=== PATIENT | female | born 1995 | race Two or more races ===

== ENCOUNTER 2016-04-29 15:58 | Inpatient (IN) | payer MEDICAID, OTHER ==
[2016-04-29] MEDS ORDERED: LIDOCAINE 1% (PRES FREE) 30 ML VIAL ONE (16:50)
[2016-04-29] MEDS ORDERED: IV START KIT ONE (16:50)
[2016-04-29] MEDS ORDERED: SODIUM CHLORIDE 0.9% FLUSH 30 ML ONE (16:50)
[2016-04-29] MEDS ORDERED: LIDOCAINE Viscous 2% 15 ML UDCUP ONE (16:50)
[2016-04-29] MEDS ORDERED: PUMP TUBING ONE (16:50)
[2016-04-29] MEDS ORDERED: OXYTOCIN 10 UNITS/ML VIAL ONE (16:50)
[2016-04-29] MEDS ORDERED: MINERAL OIL 25 ML BOT ONE (16:50)
[2016-04-29] MEDS ORDERED: OXYTOCIN IN LR 500 ML IV ONE ×2 (16:50→17:54)
[2016-04-29 17:30] VITALS: BMI 46.9
[2016-04-29] MEDS ORDERED: OXYTOCIN IN LR 500 ML IV PRN (17:55)
[2016-04-29] MEDS ORDERED: LACTATED RINGERS 1,000 ML IV SCH (18:00)
[2016-04-29] MEDS ORDERED: LANOLIN 50 APPLIC/7G TUBE TP PRN (21:24)
[2016-04-29] MEDS ORDERED: IBUPROFEN 800 MG TABLET PO PRN (21:24)
[2016-04-29] MEDS ORDERED: BENZOCAINE/MENTHOL 60 APPLIC/BOT TP PRN (21:24)
[2016-04-29] MEDS ORDERED: HYDROCODONE/ACETAMINOPHEN 5/325MG TABLET PO PRN (21:24)
[2016-04-29] MEDS ORDERED: DIPHTH,PERTUSS(ACELL),TET VAC 0.5 ML VIAL IM V ONE (21:24)
[2016-04-29] MEDS ORDERED: MAGNESIUM HYDROXIDE 30 ML UDCUP PO PRN (21:24)
[2016-04-29] MEDS ORDERED: MEASLES,MUMPS&RUBELLA VACCINE 0.5 ML VIAL SUB-Q V ONE (21:24)
--- NOTE | 2016-04-29 21:25 | PCMAN ---
OB Admission Note - History : 2 Term: 1 : 0 Abortions (S&E): 0 Livin Gestational Age (weeks): 39 Days (#/7): 6 Membrane Status: Intact Labor Onset (Date): 04/29/16 Labor Onset (Time): 19:00 Contractions: Yes Contraction Frequency:: 4 MINUTES Summary of Course:: Pt presented to [facility] today, US shows gallstones, ansd surgery suggested del baby and fatoumata out gallbladder. Pt came to [facility] to be induced - Labs Blood Type: O (+) positive
--- NOTE | 2016-04-29 21:26 | PCMDEL ---
Delivery Note - Delivery Delivery (Date): 04/29/16 Delivery (Time): 20:49 Infant Gender: Female Position: OA Umbilical Cord: 3 Vessel Delayed Cord Clamping:: > 3 min Placenta:: spontaneous and complete EBL:: 300 Perineum:: intact
[2016-04-30 06:48] LABS: ABSOLUTE NEUTROPHIL COUNT 10.6 K/mm3 (1.8-7.7); BASO % 0.2 % (0.2-1.0); EOS % 0.2 % (0.9-2.9); HEMATOCRIT 34.9 % (37.0-47.0); HEMOGLOBIN 11.5 gm/l (12.0-16.0); IMM NEUT # 0.1 K/mm3 (0-0.2); IMM NEUT% 0.6 % (0-1); LYMPH # 1.2 (1.0-4.8); LYMPH % 9.8 % (15-45); MEAN CORPUSCULAR HEMOGLOBIN 28.7 pg (27.0-31.0); MEAN PLATELET VOLUME 12.6 fl (7.4-10.4); MONO # 0.7 (0.0-0.8); MONO % 5.6 % (4-12); NEUT % 83.6 % (43-75); PLATELET COUNT 150 K/mm3 (130-400); RED CELL DISTRIBUTION WIDTH 14.5 % (11.5-14.5)
[2016-04-30 07:07] LABS: ALB/GLOB RATIO 0.9 (>1.0); ALBUMIN 2.7 gm/dL (3.5-5.7); CALCIUM 8.6 mg/dL (8.6-10.3)
[2016-04-30] MEDS: DOCUSATE SODIUM 100 MG CAPSULE PO SCH (08:00)
--- NOTE | 2016-04-30 08:41 | PDOC44 ---
- Subjective Day: 1 Reports Pain Tolerable, Reports , Reports Lochia Light, Reports Tolerating Regular Diet - Objective Temp Pulse Resp BP Pulse Ox 97.9 F 83 18 107/55 04/30/16 07:51 04/30/16 07:51 04/30/16 07:51 04/30/16 07:51 Lab Results 04/30/16 06:20 WBC 12.7 H RBC 4.01 L Hgb 11.5 L Hct 34.9 L Plt Count 150 Creatinine 0.5 L AST 12 L ALT 12 04/30/16 06:20 Neut % (Auto) 83.6 H Lymph % (Auto) 9.8 L Absolute Neuts (auto) 10.6 H Eosinophils % 0.2 L BUN 5 L Estimated GFR 156 H Alkaline Phosphatase 118 H Total Protein 5.7 L Albumin 2.7 L Albumin/Globulin Ratio 0.9 L Current Medications Generic Name Dose Route Start Last Admin Trade Name Freq PRN Reason Stop Dose Admin Acetaminophen/Hydrocodone Bitart 1 - 2 tab 04/29/16 21:24 [place] 5/325 PO Q4H PRN Pain (Moderate) Benzocaine/Menthol 1 applic 04/29/16 21:24 04/29/16 21:59 Dermoplast TP 1 bot PRN PRN Administration Patient Comfort Docusate Sodium 100 mg 04/30/16 09:00 04/30/16 08:00 Colace PO 100 mg DAILY ANNABELLA Administration Emollient Ointment 1 applic 04/29/16 21:24 [id number] TP PRN PRN sore nipples Ibuprofen 800 mg 04/29/16 21:24 04/29/16 21:59 Motrin PO 800 mg Q6H PRN Administration Pain (Mild) Magnesium Hydroxide 30 ml 04/29/16 21:24 Milk Of Magnesia PO BEDTIME PRN Constipation Sodium Chloride 10 ml 04/29/16 21:24 Normal Saline 10ml Flush IV PRN PRN IV Flush - Physical Exam General: Afebrile Psych/Mental Status: Mood/Affect Appropriate Breast: Soft Fundus: Firm Abdomen: Normal Bowel Sounds Genitourinary: Normal Female Genitalia Disposition: Stable, Anticipate DC Home Tomorrow (surgeon to see today for cholecystitis)
[2016-05-01 08:09] VITALS: BP 101/49
[2016-05-01] MEDS: DOCUSATE SODIUM 100 MG CAPSULE PO SCH (08:17)
--- NOTE | 2016-05-01 11:20 | PDOC39B ---
Hospital Course: ADMIT DATE: 04/29/16 DISCHARGE DATE: [05/01/2016] ADMISSION DIAGNOSES: [labor] PROCEDURES: [vaginal delivery] HISTORY OF PRESENT ILLNESS: 20 year old G2 T1 L1 at 39 weeks 6 days presenting with [labor] HOSPITAL COURSE: The patient [delivered a viable without complication. She requested d/c home PPD#2] By day of discharge the patient is ambulating, eating, voiding, and passing flatus without difficulty. Pain is controlled and lochia is appropriate. She is [] - Physical Exam Vital Signs: Temp Pulse Resp BP Pulse Ox 98.0 F 73 16 101/49 05/01/16 07:45 05/01/16 07:45 05/01/16 07:45 05/01/16 07:45 General: Afebrile Psych/Mental Status: Mood/Affect Appropriate, Judgment/Insight Intact, Bonding Well Neurological: Grossly Intact, Alert, Oriented x 4 HEENT: Atraumatic, PERRLA, EOMI, Mucous membr. moist/pink Lungs: Clear to Auscultation Bilaterally, Normal Air Movement Cardiovascular: Regular Rate and Rhythm, Normal S1, Normal S2 Breast: Soft, Skin intact Fundus: Firm, At Umbilicus Abdomen: Normal Bowel Sounds Lochia: Light Extremities: Full ROM Skin: Normal Color, Warm, Dry, Intact - Discharge Plan Disposition: Home Instruction Forms: Vaginal Discharge Instructions Additional Instructions: Follow up with Dr. Larkin in 6 weeks.
--- NOTE | 2016-05-01 15:30 | CONS ---
TERELL ALVARENGA : 1995 DATE OF CONSULTATION: April 30, 2016 REQUESTING PHYSICIAN: Reji Larkin M.D. HISTORY OF PRESENT ILLNESS: I had the pleasure of seeing Ms. Alvarenga in [facility] today. She is a 20-year-old female who was recently seen at [facility]. She underwent an ultrasound at [facility] that demonstrated that she had gallstones with a possible gallstone lodged in the neck of the gallbladder. The gallbladder ultrasound was completed with Ms. Alvarenga's right upper quadrant pain in her setting of 39 week . At [facility] they recommended that she proceed with delivery of the baby and then proceed with a laparoscopic cholecystectomy shortly thereafter. Based on this, Ms. Alvarenga proceed to the [facility] which is closer to her home. At [facility], Dr. Larkin induced delivery and Ms. Alvarenga had a very healthy, happy new young addition to her family with a baby girl. Immediately upon completion of delivery, Ms. Alvarenga had complete resolution of her right upper quadrant abdominal pain. Ms. Alvarenga states that she has had previous attacks of what appear to be classic biliary colic over the last one to two years. She states that after eating fatty foods, she gets right upper quadrant abdominal pain and a stabbing type sensation that lasts for a number of hours and then dissipates. It does not return for a number of months, but ultimately she has had multiple attacks. Over her last few weeks of , she has had worsening right upper quadrant abdominal pain which culminated just prior to her presentation at [facility] in the last 48 hours. Since having the delivery, Ms. Alvarenga has had complete resolution of her right upper quadrant abdominal pain. PHYSICAL EXAM: On physical exam, Ms. Alvarenga appears her stated age. Her abdomen is soft. She has no real right upper quadrant abdominal tenderness. She denies pain with deep palpations and has a negative Campos's at this point. LABS: Her laboratory results reveal a normal bilirubin, slight elevation in her AST, alkaline phosphatase and WBC which may be consistent with late gestational . IMAGING: Ultrasound from [facility] reveals a number of stones in the gallbladder. ASSESSMENT: I had a long discussion today with Ms. Alvarenga. I reviewed the natural history of biliary colic and acute cholecystitis. I also discussed the particular issue with . I did tell Ms. Alvarenga that with her past history of biliary colic prior to this most recent and now having episodes of worsening biliary colic in the late portion of her that she will at some point most likely require her gallbladder to be removed. I did offer a laparoscopic cholecystectomy on this admission but obviously, Ms. Alvarenga has a new addition to the family and has multiple competing commitments at this point. With complete resolution of her abdominal pain, I told her that it is reasonable for her to not proceed with laparoscopic cholecystectomy at this point, but that she should return to see a general surgeon in a number of weeks to discuss elective laparoscopic cholecystectomy. I did review the symptoms of acute cholecystis and the need to present to the emergency department if in fact she has recurrence of her symptoms in the near future. I did again, offer a laparoscopic cholecystectomy, but I understand with competing issues at this point, I think that it is reasonable that she plan for elective laparoscopic cholecystectomy as an outpatient procedure. I did discuss briefly the surgery and the risks, benefits, and alternatives. Ms. Alvarenga will call the general surgery clinic in [place] and make a followup appointment in the near future.
== END 2016-05-01 12:39 | disposition home or self-care (01) | DRG 775 ==
LOC: FBC 15:58 → EDSTATUS 04-30 15:57
PROVIDERS: ADMIT Obstetrics & Gynecology; ATTEND Obstetrics & Gynecology
PROC: 10E0XZZ Delivery of Products of Conception, External Approach (ICD-10-PCS; principal; 2016-04-29)
PROC: 3E033VJ Introduction of Other Hormone into Peripheral Vein, Percutaneous Approach (ICD-10-PCS; 2016-04-29)
DX: O99.62 Diseases of the digestive system complicating childbirth (principal); K80.00 Calculus of gallbladder with acute cholecystitis without obstruction; Z3A.39 39 weeks gestation of pregnancy; Z37.0 Single live birth

== ENCOUNTER 2016-05-02 02:52 | Day surgery (SDC) | payer OTHER ==
[2016-05-02] MEDS ORDERED: MORPHINE SULFATE 4 MG/ML SYRINGE ONE (03:27)
[2016-05-02] MEDS ORDERED: ONDANSETRON 4 MG/2ML 2 ML VIAL ONE ×2 (03:27→14:35)
[2016-05-02 03:32] LABS: ABSOLUTE NEUTROPHIL COUNT 7.5 K/mm3 (1.8-7.7); BASO % 0.3 % (0.2-1.0); EOS # 0.3 (0.0-0.5); EOS % 2.7 % (0.9-2.9); HEMATOCRIT 37.4 % (37.0-47.0); HEMOGLOBIN 11.9 gm/l (12.0-16.0); IMM NEUT # 0.1 K/mm3 (0-0.2); IMM NEUT% 0.5 % (0-1); LYMPH % 10.7 % (15-45); MEAN CELL VOLUME 89.7 fl (81.0-99.0); MEAN CORPUSCULAR HEMOGLOBIN 28.5 pg (27.0-31.0); MEAN CORPUSCULAR HGB CONC 31.8 g/dl (33.0-37.0); MEAN PLATELET VOLUME 12.1 fl (7.4-10.4); MONO # 0.5 (0.0-0.8); MONO % 5.3 % (4-12); NEUT % 80.5 % (43-75); PLATELET COUNT 147 K/mm3 (130-400); RED CELL DISTRIBUTION WIDTH 14.5 % (11.5-14.5)
[2016-05-02 03:49] LABS: ALB/GLOB RATIO 0.9 (>1.0); ALBUMIN 2.8 gm/dL (3.5-5.7); CALCIUM 8.6 mg/dL (8.6-10.3); MAGNESIUM 1.7 mg/dL (1.9-2.7)
[2016-05-02] MEDS ORDERED: SODIUM CHLORIDE 0.9% 1,000 ML ONE ×2 (04:02→05:40)
[2016-05-02 04:49] LABS: SPECIFIC GRAVITY 1.015 (1.001-1.030); URINE BILIRUBIN NEGATIVE (NEGATIVE); URINE BLOOD 4+ (NEGATIVE); URINE GLUCOSE (UA) NEGATIVE (NEGATIVE); URINE LEUKOCYTE ESTERASE TRACE (NEGATIVE); URINE NITRITE NEGATIVE (NEGATIVE); URINE PROTEIN 1+ (NEGATIVE)
[2016-05-02 04:55] LABS: URINE APPEARANCE HAZY; URINE COLOR AMBER; URINE UROBILINOGEN 4 mg/dL (0-1 mg/dl)
[2016-05-02 04:58] LABS: URINE BACTERIA FEW; URINE MUCUS 1+
[2016-05-02] MEDS ORDERED: PUMP TUBING ONE (05:40)
[2016-05-02 05:55] VITALS: BMI 44.1
[2016-05-02] MEDS ORDERED: ACETAMINOPHEN 325 MG TABLET PO PRN ×2 (06:10→16:45)
[2016-05-02] MEDS ORDERED: ONDANSETRON 4 MG/2ML 2 ML VIAL IV PRN ×3 (06:10→16:45)
[2016-05-02] MEDS ORDERED: BLISTEX LIPSTICK 1 EACH TP PRN (06:10)
[2016-05-02] MEDS ORDERED: SODIUM CHLORIDE 0.9% 1,000 ML IV ONE (06:10)
[2016-05-02] MEDS ORDERED: KETOROLAC TROMETHAMINE 30 MG/ML 1 ML VIAL IV PRN ×2 (06:10→16:45)
[2016-05-02] MEDS ORDERED: OXYCODONE HCL 5 MG TABLET PO PRN (06:10)
[2016-05-02] MEDS ORDERED: MENTHOL/CETYLPYRD 1 EACH LOZENGE PO PRN (06:10)
[2016-05-02] MEDS ORDERED: HYDROMORPHONE HCL 1 MG/ML SYRINGE IV PRN ×3 (06:10→16:45)
[2016-05-02] MEDS ORDERED: HYDROMORPHONE HCL 0.5 MG/0.5 ML SYRINGE IV PRN ×2 (06:35→16:53)
[2016-05-02] MEDS ORDERED: METRONIDAZOLE 500 MG/NS 100 ML 500 MG in Premix (D5W) 100 ml 1 EACH IV SCH (06:45)
[2016-05-02] MEDS ORDERED: CEFTRIAXONE 1 GRAM DUPLEX 1 G in Premix (D5W) 50 ml 1 EACH IV SCH ×2 (07:00→08:00)
--- NOTE | 2016-05-02 07:52 | US ---
ABDOMINAL-LIMITED COMPARISON: None HISTORY: Right upper quadrant pain. Known cholelithiasis. FINDINGS: Gall bladder: Length 12.3 cm by with 3.5 cm. There are 3 gallstones, one mobile, 2 nonmobile, in the neck of the gallbladder, up to 2.5 cm, with echogenic sludge. Negative Campos sign. Wall thickness 7.5 mm.. Pericholecystic fluid. Common hepatic duct: 6.1 mm. Common bile duct: 5.2 mm. IMPRESSION: 1. Acute cholecystitis. There are 2 stones lodged in the neck of the gallbladder. Upper limit normal diameter of the common hepatic duct. Preliminary report by [facility] radiologists Mango Carreno M.D. 05/02/2016 at 04:59
[2016-05-02] MEDS ORDERED: NS IV ONE (08:42)
[2016-05-02] MEDS ORDERED: METRONIDAZOLE IV ONE (08:42)
[2016-05-02] MEDS ORDERED: PRENATAL VIT/FE FUMARATE/FA 1 TABLET PO SCH (09:00)
[2016-05-02] MEDS ORDERED: FAMOTIDINE 10 MG/ML 2ML VIAL IV SCH (09:00)
[2016-05-02] MEDS: METRONIDAZOLE 500 MG/NS 100 ML 500 MG in Premix (D5W) 100 ml 1 EACH IV SCH ×3 (09:21→20:32)
[2016-05-02] MEDS: D5 1/2NS with 20 mEq KCL 1,000 ML IV SCH ×2 (09:22→20:15)
[2016-05-02] MEDS ORDERED: LACTATED RINGERS 1,000 ML ONE (11:30)
[2016-05-02] MEDS ORDERED: LIDOCAINE 1%/EPI 1:100,000 (MULTI DOSE) 30 ML VIAL ONE (11:41)
[2016-05-02] MEDS ORDERED: ROCURONIUM BROMIDE 10 MG/ML DOSE IV ONE (12:45)
[2016-05-02] MEDS ORDERED: FENTANYL 250 MCG/5 ML AMP ONE (12:45)
[2016-05-02] MEDS ORDERED: PROPOFOL 20 ML IV ONE ×2 (12:45→15:12)
[2016-05-02] MEDS ORDERED: MIDAZOLAM HCL 5 MG/5 ML VIAL ONE (12:45)
[2016-05-02] MEDS ORDERED: Heparin Sodium 5000 unit/0.5ml syringe SUB-Q PRN (12:54)
[2016-05-02] MEDS ORDERED: DEXAMETHASONE SOD PHOS 4 MG/1 ML VIAL ONE (14:35)
[2016-05-02] MEDS ORDERED: EPHEDRINE SULFATE UD SYR 25 MG 25 MG/5 ML SYRINGE IV ONE (14:35)
[2016-05-02] MEDS ORDERED: PHENYLEPHRINE 10 MG/1 ML (1%) VIAL ONE (14:51)
[2016-05-02] MEDS ORDERED: FENTANYL 100 MCG/2 ML VIAL IV PRN (14:56)
[2016-05-02] MEDS ORDERED: PROMETHAZINE HCL 25 MG/ML VIAL IM PRN (14:56)
[2016-05-02] MEDS ORDERED: ATROPINE SULFATE 0.4 MG/1 ML VIAL IV PRN (14:56)
[2016-05-02] MEDS ORDERED: NALOXONE HCL 0.4 MG/ML VIAL IV PRN (14:56)
[2016-05-02] MEDS ORDERED: KETOROLAC TROMETHAMINE 30 MG/ML 1 ML VIAL ONE (14:57)
[2016-05-02] MEDS ORDERED: GLYCOPYRROLATE 0.2 MG/ML 1ML VIAL ONE (14:57)
[2016-05-02] MEDS ORDERED: NEOSTIGMINE METHYLSULFATE 1 MG/ML DOSE ONE (14:57)
[2016-05-02] MEDS ORDERED: LACTATED RINGERS 1,000 ML IV SCH (15:00)
[2016-05-02] MEDS ORDERED: FENTANYL 100 MCG/2 ML VIAL ONE ×2 (15:12→15:47)
--- NOTE | 2016-05-02 16:11 | PCMON ---
Date of Procedure: 05/02/16 Start Time: 3:00pm PREOPERATIVE DIAGNOSIS Acute cholecystitis POSTOPERATIVE DIAGNOSIS Acute cholecystitits PROCEDURE PERFORMED Laparoscopic cholecystectomy. COMPLICATIONS None. OPERATIVE FINDINGS Acute cholecystitis with severe edematous changes of the gallbladder ESTIMATED BLOOD LOSS 30 mL. BRIEF INDICATIONS TERELL ALVARENGA is a 20 year old F patient with symptoms consistent with gallbladder disease and was admitted for consideration of laparoscopic cholecystectomy. The preoperative Bilirubin was normal, and RUQ-focused ultrasound demonstrated acute cholecystitis with gallstones. Risks and benefits of surgery were explained to the patient, including the 1: 200 risk of common bile duct injury and the possible need for conversion to open technique (5%). The patient declined the possible alternatives and agreed to proceed with surgery, providing informed consent. DESCRIPTION OF PROCEDURE The patient was brought to the operating room and placed supine on the operating room table. A surgical briefing was held to verify the correct patient and correct procedure. A general anesthetic was induced uneventfully, followed by the administration of a subcutaneous heparin injection and perioperative antibiotics. Pneumatic compression stockings were placed on the legs and powered on. The abdomen was prepped and draped in a sterile fashion. A 5-mm direct optical view trocar was used to enter the right upper quadrant under direct vision of the abdominal wall layers. Once inside the abdominal cavity, a pneumoperitoneum was created. No injury to underlying structures occurred with placement of this trocar. Once inside the abdominal cavity, an additional 11-mm port was placed in the upper midline just below the xiphisternum. An additional 5-mm port was placed in the supraumbilical position , and a 5-mm port was placed in the right lateral position. All trocars were placed under direct visualization. There was no injury to underlying structures with placement of these trocars. Once inside the abdominal cavity and the pneumoperitoneum was created, the gallbladder was retracted over the liver. We were able to identify inflammation around the gallbladder, and there appeared to be a stone in Jesse pouch. The gallbladder was then grasped by Jesse pouch and retracted up away from the common bile duct. Pre-dissection safety checklist: Fundus of gallbladder retracted to 10 o'clock: yes. Line between Rouviere sulcus and base of segment IV identified: yes. Safe level of dissection identified: yes. Posterior leaf of peritoneum covering hepatobiliary triangle identified: yes. The dissection was initiated with hook electrocautery on the posterior peritoneum covering of the hepatobiliary triangle, followed by the medical border of the gallbladder in the region of Calot triangle. We identified the lymph node of Calot which was not removed during the dissection. We continued our dissection, mobilizing lymph node off the cystic artery. As the triangle was developed, the cystic artery was identified. An intraoperative cholangiogram was not performed. The cystic duct and artery were both identified and exposed. A critical view of safety was obtained by clearing all the tissue between the underside of the infundibulum and the liver so the cystic duct and the artery could be clearly seen going into the gallbladder. The triangle of Calot had no aberrant structures or additional anatomy present within the triangle between the liver bed, the cystic duct and the region of the gallbladder. Once the critical view was demonstrated and there was no evidence of additional structures, we turned our attention to clipping the cystic artery and duct. Pre-clipping of cystic duct safety checklist: Critical view confirmed: yes. The cystic artery was clipped proximally, once distally and transected. This was confirmed as the artery with pulsatile beating in the region of the clips once transected. Once the artery was taken, we turned our attention to clipping the cystic duct. The cystic duct was clipped with 2 clips proximally and once distally. This was then transected, and we then removed the gallbladder from the gallbladder bed. No injury to the underlying liver occurred with removal of the gallbladder, there was no evidence of bile leak or bile duct injury, and the gallbladder was not perforated with no spillage of stones prior to removal. The gallbladder was then placed in an Endocatch bag and removed through the 11-mm trocar. Once the trocar was removed, we then irrigated the right upper quadrant. The pneumoperitoneum was released, and the trocars were removed under direct visualization.
[2016-05-02] MEDS: CEFTRIAXONE 1 GRAM DUPLEX 1 G in Premix (D5W) 50 ml 1 EACH IV SCH (21:00)
[2016-05-02] MEDS: Heparin Sodium 5000 unit/0.5ml syringe SUB-Q SCH (21:55)
[2016-05-03] MEDS: METRONIDAZOLE 500 MG/NS 100 ML 500 MG in Premix (D5W) 100 ml 1 EACH IV SCH ×2 (02:23→08:44)
[2016-05-03] MEDS: D5 1/2NS with 20 mEq KCL 1,000 ML IV SCH ×2 (02:23→04:41)
[2016-05-03 06:10] LABS: HEMOGLOBIN 11.4 gm/l (12.0-16.0); MEAN CELL VOLUME 90.7 fl (81.0-99.0); MEAN CORPUSCULAR HEMOGLOBIN 28.7 pg (27.0-31.0); MEAN CORPUSCULAR HGB CONC 31.7 g/dl (33.0-37.0); RED CELL DISTRIBUTION WIDTH 14.6 % (11.5-14.5)
[2016-05-03] MEDS: OXYCODONE HCL 5 MG TABLET PO PRN ×2 (06:14→13:08)
[2016-05-03 06:27] LABS: ALB/GLOB RATIO 0.9 (>1.0); ALBUMIN 2.5 gm/dL (3.5-5.7); CALCIUM 8.5 mg/dL (8.6-10.3)
[2016-05-03] MEDS: CEFTRIAXONE 1 GRAM DUPLEX 1 G in Premix (D5W) 50 ml 1 EACH IV SCH (07:38)
--- NOTE | 2016-05-03 07:58 | HP ---
TERELL ALVARENGA DATE OF ADMISSION: May 02, 2016 HISTORY OF PRESENT ILLNESS: Ms. Alvarenga is a 20-year-old female who is known to me. I saw her in the hospital approximately 48 hours ago with delivery of her second child. She was initially seen prior to that admission to [facility] in [facility] where she was having right upper quadrant abdominal pain associated with term labor pains. She was advised to have a laparoscopic cholecystectomy in [place] but returned to [place] due to proximity to her home. In [place], she underwent induction and had a delivery of a healthy female baby. Immediately upon completion of her delivery, she had complete resolution of her right upper quadrant abdominal pain. I saw her at that point, discussed the ultrasound finding of three stones in her gallbladder with stone in the neck and advised laparoscopic cholecystectomy, but based on the resolution of Ms. Alvarenga's pain, she wished to proceed home with her new baby and return if she had symptoms return. Ms. Alvarenga has been having classic biliary colic symptoms for a number of months during her as well as pre- biliary colic type symptoms. She returns today with worsening of her pain since yesterday afternoon. She had a gradual onset of biliary colic which culminated in pain early this morning which required her to come back to the [facility] Emergency Department. PHYSICAL EXAMINATION: On physical examination in the emergency department, Ms. Alvarenga is her stated age. Her abdomen is soft. She does have right upper quadrant abdominal tenderness and a positive Campos's sign. She is not in extremis and is otherwise nontoxic. Her respiratory exam is unremarkable with equal air bilaterally and her cardiovascular exam is normal with normal heart sounds and no murmurs. DIAGNOSTIC IMAGING: Ms. Alvarenga's ultrasound report in the emergency room at [facility] on May 02, 2016 reveals a gallbladder with three gallstones apparently two non-mobile in the neck of the gallbladder measuring up to 2.5 cm in size with echogenic sludge. Negative Campos's on exam with a wall thickness of 7.5 mm and pericholecystic fluid. The common bile duct is measured at 6.1 mm which is slightly large for Ms. Alvarenga, but her recent laboratory values in [facility] Emergency Department reveal a normal bilirubin and a nonobstructive common bile duct picture. Based on the recurrence of her biliary colic and symptoms suggestive of acute cholecystitis with an ultrasound demonstrating non-mobile gallstones and a thickened gallbladder wall with pericholecystic fluid, I recommended proceeding with a laparoscopic cholecystectomy. I did discuss briefly the issue with the slightly dilated duct and potential need for downstream endoscopic retrograde cholangiopancreatography but with a nonobstructive picture on her laboratory results, at this point, I will proceed with a laparoscopic cholecystectomy. The risks and benefits of surgery were explained to Ms. Alvarenga. They include but were not limited to deep venous thrombosis, myocardial infarction, pulmonary embolism, wound infection, urinary tract infection, kidney failure, respiratory failure, reaction to medication, reaction to anesthetic and hernia. I also discussed the risk of 1/200 case of common bile duct injury in the gravity of this injury and the requirement for subsequent procedures including endoscopic retrograde cholangiopancreatography as well as surgery if this were to occur. I also discussed the 5% risk of a conversion to an open procedure depending on Ms. Alvarenga's anatomy and level of inflammation. At this point, Ms. Alvarenga wishes to proceed with surgery. Informed consent was obtained. We will plan for laparoscopic cholecystectomy for Ms. Alvarenga in the near future.
[2016-05-03] MEDS ORDERED: Heparin Sodium 5000 unit/0.5ml syringe SUB-Q SCH (09:00)
[2016-05-03] MEDS: Heparin Sodium 5000 unit/0.5ml syringe SUB-Q SCH (10:25)
[2016-05-03 12:22] VITALS: BP 111/58
--- NOTE | 2016-05-05 13:54 | SURGPATH ---
[facility] [address] [place] [id number] Patient Name: TERELL ALVARENGA MR#: [id number] : 1995 Gender: F Specimen #: [id number] Collected: 05/02/2016 Received: 05/04/2016 Reported: 05/05/2016 Submitting Phys: ERIC PRAKASH Copy To Phys: [facility] Clinical History / Pre-Operative Diagnosis: Acute cholecystitis, cholelithiasis Specimen Source / Surgical Procedure Performed: Gallbladder Interpretation: GALLBLADDER, CHOLECYSTECTOMY: - MARKED ACUTE CHOLECYSTITIS WITH MUCOSAL ULCERATION. - CHOLELITHIASIS. - NO EVIDENCE OF MALIGNANCY. Electronically Signed Out Shashi Schaeffer M.D., Ph.D. Gross Description: The specimen is received in formalin labeled with the patient's name and "gallbladder". The specimen consists of a 10.5 x 4.0 x 3.5 cm in large dusky mottled intact gallbladder. The cystic duct is difficult to identify. There is a 2 cm possible lymph node near the possible cystic duct. There are three brown ovoid granular 1.5 cm stones. The mucosa is ansari and granular. The wall is partially edematous. 1A-C. printing sales representative gallbladder including possible cystic duct and possible lymph node MAGDALENA Camacho Microscopic Description: Examination of multiple sections from the gallbladder shows gallbladder wall with a marked acute inflammatory cell infiltrate associated with scattered Rokitansky Aschoff sinuses. Areas of mucosal ulceration are seen. The inflammatory infiltrate extends through the gallbladder wall into the surrounding adipose tissue. There is hemorrhage and edema within the wall. There is no evidence of malignancy. [id number]: [id number] K80.00
== END 2016-05-03 13:10 | disposition home or self-care (01) ==
LOC: ED 02:52 → SDC 05:08 → MS 05:08 → SDC 05-03 13:10
PROVIDERS: ATTEND Surgery
PROC: 0FT44ZZ Resection of Gallbladder, Percutaneous Endoscopic Approach (ICD-10-PCS; principal; 2016-05-02)
DX: O99.63 Diseases of the digestive system complicating the puerperium (principal); K80.00 Calculus of gallbladder with acute cholecystitis without obstruction
CPT/HCPCS: 47562; 83690; 85027; 85025; 87086; 80053 ×2; 83735; 81001; 36415; 76705; 96375; 99284; 96374; 51701; 99285; J3010 ×3; J1644 ×3; J1100; J2270; J2370; A9270 ×2; J1885 ×2; J2250; J2001; J2405 ×2; J7120; J7030 ×3; J1170; J0696 ×2